=== PATIENT | female | born 1995 | race Caucasian/White ===

== ENCOUNTER 2017-08-15 21:09 | Emergency (ER) | payer OTHER ==
[~2017-08-15] VITALS: Ht 170.2 cm; Wt 77.3 kg
[2017-08-15] MEDS ORDERED: LORYNA 3 MG-0.01 TAB PO (21:25)
[2017-08-15] MEDS ORDERED: CEPHALEXIN500 M1 PO (21:27)
[2017-08-15 21:28] VITALS: BP 132/90; TEMP 98.1
[2017-08-15] MEDS ORDERED: BACTRIM DS 8001 TAB PO (21:53)
[2017-08-15 22:00] VITALS: PULSE 88
== END 2017-08-15 22:03 | disposition home or self-care (01) ==
LOC: COL.ER 21:09
DX: L03.116 Cellulitis of left lower limb (principal)

== ENCOUNTER → 2017-09-19 | Outpatient (CLI) | payer OTHER ==
[~2017-09-19] MED LIST: BACTRIM DS 8001 TAB PO; CEPHALEXIN500 M1 PO; LORYNA 3 MG-0.01 TAB PO
[2017-09-19 18:06] LABS: BASO % 0.5 % (0.0-2.0); EOS # 0.1 (0.0-0.7); EOS % 1.1 % (0-4.0); GRAN # 5.1 (1.4-6.5); GRAN % 59.7 % (42.2-75.2); HEMATOCRIT 39.8 % (35.0-45.0); LYMPH # 2.6 (1.2-3.4); LYMPH % 30.6 % (20.0-51.0); MEAN CELL VOLUME 84 fl (80.0-95.0); MEAN CORPUSCULAR HEMOGLOBIN 27 pg (26.0-32.0); MEAN CORPUSCULAR HGB CONC 33 g/dl (33.0-37.0); MEAN PLATELET VOLUME 10.3 fl (7.4-10.4); MONO # 0.7 (0.1-0.6); MONO % 7.7 % (1.7-9.3); PLATELET COUNT 271 K/mm3 (130-400); RED BLOOD COUNT 4.76 M/mm3 (4.10-5.30); REDCELL DISTRIBUTION WIDTH-CV 13.2 % (11.5-14.5)
[2017-09-19 18:17] LABS: ALBUMIN 4.4 gm/dL (3.5-5.0); BILIRUBIN,TOTAL 0.3 mg/dL (0.0-1.0); CALCIUM 9.7 mg/dL (8.4-10.2); CREATININE, serum 0.61 mg/dL (0.52-1.25); POTASSIUM 3.9 mmol/L (3.4-5.0); TOTAL PROTEIN 8.7 gm/dL (6.4-8.2)
[2017-09-19 18:28] LABS: ERYTHROCYTE SEDIMENTATION RATE 29 mm/hr (0-20)
== END ==
LOC: COL.LAB 17:39
PROVIDERS: Physician Assistant
DX: L03.116 Cellulitis of left lower limb (principal)